=== PATIENT | female | born 1955 | race Two or more races ===

== ENCOUNTER 2024-01-23 13:51 | Emergency (ER) | payer OTHER ==
[~2024-01-23] VITALS: Ht 170.2 cm; Wt 88.5 kg
[2024-01-23] MEDS ORDERED: DEXAMETHASONE SODIUM PHOSPHATE 4 MG/ML VIAL IM STA (15:44)
[2024-01-23] MEDS ORDERED: ACETAMINOPHEN 325 MG TABLET PO STA (15:46)
[2024-01-23] MEDS ORDERED: DEXAMETHASONE SODIUM PHOSPHATE 4 MG/ML VIAL ONE (15:47)
== END 2024-01-23 17:13 | disposition home or self-care (01) ==
LOC: ER 13:53
DX: L57.8 Other skin changes due to chronic exposure to nonionizing radiation (principal)
CPT/HCPCS: 96372; 99282; J1100